=== PATIENT | female | born 1990 | race Caucasian/White ===

== ENCOUNTER 2020-02-11 14:00 | Day surgery (SDC) | payer OTHER | END 2020-02-11 20:50 | disposition home or self-care (01) | LOC: CIR.AMB 14:00 → U 14:00 → CIR.AMB 20:50 | PROVIDERS: ATTEND Obstetrics & Gynecology Obstetrics | DX: D06.7 Carcinoma in situ of other parts of cervix (principal); Z20.828 Contact with and (suspected) exposure to other viral communicable diseases ==

== ENCOUNTER 2020-04-19 12:07 | Outpatient (CLI) | payer OTHER | END 2020-04-19 13:31 | disposition home or self-care (01) | LOC: RAD 12:07 | DX: Z12.31 Encounter for screening mammogram for malignant neoplasm of breast (principal); N64.59 Other signs and symptoms in breast; M54.5 Low back pain ==

== ENCOUNTER 2020-04-24 10:32 | Day surgery (SDC) | payer OTHER | END 2020-04-24 22:10 | disposition home or self-care (01) | LOC: U 10:32 → CIR.AMB 10:32 | PROVIDERS: ATTEND Obstetrics & Gynecology Obstetrics | DX: Z30.2 Encounter for sterilization (principal); Z20.822 Contact with and (suspected) exposure to COVID-19 ==

== ENCOUNTER 2021-05-03 17:29 | Inpatient (IN) | payer OTHER ==
[~2021-05-03] VITALS: Ht 152.4 cm; Wt 79.4 kg
== END 2021-05-06 14:45 | disposition home or self-care (01) | DRG 768 ==
LOC: OBS/DEL 17:29 → OB/GYN 05-04 03:54 → LDR 05-04 03:54 → OB/GYN 05-04 07:49
PROVIDERS: ADMIT Obstetrics & Gynecology Obstetrics; ATTEND Obstetrics & Gynecology Obstetrics
PROC: 10E0XZZ Delivery of Products of Conception, External Approach (ICD-10-PCS; principal; 2021-05-04)
PROC: 4A1HXCZ Monitoring of Products of Conception, Cardiac Rate, External Approach (ICD-10-PCS; 2021-05-04)
PROC: 0W8NXZZ Division of Female Perineum, External Approach (ICD-10-PCS; 2021-05-04)
PROC: 0DJD0ZZ Inspection of Lower Intestinal Tract, Open Approach (ICD-10-PCS; 2021-05-05)
PROC: 0UB70ZZ Excision of Bilateral Fallopian Tubes, Open Approach (ICD-10-PCS; 2021-05-05)
DX: O75.89 Other specified complications of labor and delivery (principal); Z37.0 Single live birth; K91.89 Other postprocedural complications and disorders of digestive system; Z3A.37 37 weeks gestation of pregnancy; Z30.2 Encounter for sterilization; Z20.822 Contact with and (suspected) exposure to COVID-19